=== PATIENT | female | born 1985 | race Caucasian/White ===

== ENCOUNTER 2017-02-25 20:32 | Emergency (ER) | payer MEDICAID ==
[~2017-02-25 20:32] MED LIST: ALBU0.086 INH; PERC5TAB12 PO
[2017-02-25 20:34] VITALS: BP 167/105; PULSE 93; RESP 20; TEMP 97.7; O2SAT 99
--- NOTE | 2017-02-25 20:58 | PD ---
HPI Chief Complaint: Abdominal Pain Time Seen by Provider: 20:45 Travel History International Travel<30 days: No Contact w/Intl Traveler<30days: No Traveled to known affect area: No History of Present Illness HPI 32yo F with PMH of morbid obesity presents to the ED with c/o RUQ pain that started today. States it is sharp, feels like a rubber band and constant. Pain is worst after eating. Pain radiates to right mid back. Associated with nausea. Ibuprofen and acetaminophen did not improve pain. Denies any fever, vomiting, chest pain, sob, dysuria, hematuria, vaginal bleeding or discharge, focal weakness or numbness. States she had this pain intermittently for months but did not seek medical attention. Only surgery is tonsillectomy. PFSH Past Medical History Hx Anticoagulant Therapy: No Asthma: Yes Anxiety: Yes Depression: Yes Cardiovascular Problems: No Chemotherapy: No Cerebrovascular Accident: No Diabetes: No Diminished Hearing: No Respiratory: Yes (ASTHMA) LMP: 2 DAYS AGO : 3 Para: 2 Past Surgical History Hysterectomy: No Tonsillectomy: Yes Social History Alcohol Use: No Tobacco Use: No (quiet 1 week ago smoked 2-3 cigs a day) Substance Use: No Allergies-Medications (Allergen,Severity, Reaction): Coded Allergies: prednisone (Verified Allergy, Severe, RESP DISTRESS, 02/25/17) latex (Verified Allergy, Intermediate, RASH, 02/25/17) Reported Meds & Prescriptions Reported Meds & Active Scripts Active Percocet 5-325 mg (Oxycodone/Acetaminophen) 1 Tab 1 Tab PO Q6H PRN Proventil Ud 0.083% (2.5 Mg/3 Ml) (Albuterol Sulfate) 2.5 Mg/3 Ml Inha 2.5 Mg INH Q4 Review of Systems Except as stated in HPI: all other systems reviewed are Neg Physical Exam Narrative GENERAL: 32yo F in mild distress. SKIN: Focused skin assessment warm/dry. HEAD: Atraumatic. Normocephalic. EYES: Pupils equal and round. No scleral icterus. No injection or drainage. CARDIOVASCULAR: Regular rate and rhythm. No murmur appreciated. RESPIRATORY: No accessory muscle use. Clear to auscultation. Breath sounds equal bilaterally. GASTROINTESTINAL: Abdomen soft, obese. +TTP RUQ. +Valenzuela's sign. +Mild epigastric ttp. No ttp RLQ. MUSCULOSKELETAL: No obvious deformities. No clubbing. No cyanosis. No edema. NEUROLOGICAL: Awake and alert. No obvious cranial nerve deficits. Motor grossly within normal limits. Normal speech. PSYCHIATRIC: Appropriate mood and affect; insight and judgment normal. Data Data Last Documented VS Vital Signs Date Time Temp Pulse Resp B/P (MAP) Pulse Ox O2 Delivery O2 Flow Rate FiO2 02/25/17 23:15 98.1 97 15 119/58 (78) 98 Room Air Orders Orders Us Abdomen Gallbladder (02/25/17 ) Complete Blood Count With Diff (02/25/17 20:53) Basic Metabolic Panel (Bmp) (02/25/17 20:53) Hepatic Functional Panel (02/25/17 20:53) Lipase (02/25/17 20:53) Prothrombin Time / Inr (Pt) (02/25/17 20:53) Act Partial Throm Time (Ptt) (02/25/17 20:53) Ed Urine Pregnancytest Poc (02/25/17 20:53) Urinalysis - C+S If Indicated (02/25/17 20:53) Ondansetron Inj (Zofran Inj) (02/25/17 21:00) Morphine Inj (Morphine Inj) (02/25/17 21:00) Ondansetron Odt (Zofran Odt) (02/25/17 22:00) Labs Laboratory Tests Test 02/25/17 21:10 02/25/17 21:33 Urine Color YELLOW Urine Turbidity CLEAR Urine pH 7.0 Urine Specific [place] 1.022 Urine Protein NEG mg/dL Urine Glucose (UA) NEG mg/dL Urine Ketones TRACE mg/dL Urine Occult Blood NEG Urine Nitrite NEG Urine Bilirubin NEG Urine Leukocyte Esterase TRACE Urine WBC 0-2 /hpf Urine Squamous Epithelial Cells 0-5 /hpf Urine Bacteria RARE /hpf Urine Mucus FEW /lpf Microscopic Urinalysis Comment CULT NOT INDICATED White Blood Count 8.5 TH/MM3 Red Blood Count 4.74 MIL/MM3 Hemoglobin 13.4 GM/DL Hematocrit 39.7 % Mean Corpuscular Volume 83.7 FL Mean Corpuscular Hemoglobin 28.2 PG Mean Corpuscular Hemoglobin Concent 33.7 % Red Cell Distribution Width 12.5 % Platelet Count 285 TH/MM3 Mean Platelet Volume 7.9 FL Neutrophils (%) (Auto) 57.8 % Lymphocytes (%) (Auto) 36.8 % Monocytes (%) (Auto) 3.3 % Eosinophils (%) (Auto) 1.7 % Basophils (%) (Auto) 0.4 % Neutrophils # (Auto) 5.0 TH/MM3 Lymphocytes # (Auto) 3.1 TH/MM3 Monocytes # (Auto) 0.3 TH/MM3 Eosinophils # (Auto) 0.1 TH/MM3 Basophils # (Auto) 0.0 TH/MM3 CBC Comment DIFF FINAL Differential Comment Prothrombin Time 10.2 SEC Prothromb Time International Ratio 0.9 RATIO Activated Partial Thromboplast Time 27.8 SEC Blood Urea Nitrogen 11 MG/DL Creatinine 0.72 MG/DL Random Glucose 117 MG/DL Total Protein 6.7 GM/DL Albumin 3.6 GM/DL Calcium Level 8.2 MG/DL Alkaline Phosphatase 109 U/L Aspartate Amino Transf (AST/SGOT) 19 U/L Alanine Aminotransferase (ALT/SGPT) 29 U/L Total Bilirubin 0.2 MG/DL Direct Bilirubin LESS THAN 0.1 MG/DL Sodium Level 139 MEQ/L Potassium Level 4.0 MEQ/L Chloride Level 105 MEQ/L Carbon Dioxide Level 28.3 MEQ/L Anion Gap 6 MEQ/L Estimat Glomerular Filtration Rate 93 ML/MIN Indirect Bilirubin 0.1 MG/DL Lipase 268 U/L MDM Medical Decision Making Medical Screen Exam Complete: Yes Emergency Medical Condition: Yes Differential Diagnosis Acute cholecystitis vs. biliary colic vs. pancreatitis vs. peptic ulcer disease vs. gastritis Narrative Course 32yo F with RUQ pain. negative. Labs reviewed, no leukocytosis. Lipase normal. LFTs normal. UA showed trace leukocyte. WBC 0-2. Culture not indicated. US gallbladder showed suspected hepatic steatosis. Contracted gallbladder. Gallstones are not seen. Pt refusing morphine. Said her pain improved. Zofran PO given. Tolerating PO. Return precautions given. Diagnosis Primary Impression: Abdominal pain Qualified Codes: R10.11 - Right upper quadrant pain Patient Instructions: General Instructions Departure Forms: Tests/Procedures Additional Instructions: Please follow up with your primary care physician in 3-7 days. Return to the ED if symptoms worsen. Med/Other Pt SpecificInfo: Prescription(s) given Scripts Ibuprofen (Ibuprofen) 600 Mg Tab 600 MG PO Q8HR Y for PAIN, #20 TAB 0 Refills Prov: Rocio Walton DO 02/25/17 Disposition: 01 DISCHARGE HOME Condition: Stable Rocio Walton DO Feb 25, 2017 20:58
[2017-02-25] MEDS ORDERED: MORPHINE SULFATE 4 MG/ML INJ IV PUSH ONE (21:00)
[2017-02-25] MEDS ORDERED: ONDANSETRON HCL 4 MG/2 ML VIAL IV PUSH ONE (21:00)
[2017-02-25 21:21] LABS: BLOOD, URINE NEG (NEG); GLUCOSE,URINE NEG (NEG); KETONE, URINE TRACE mg/dL (NEG); NITRITE,URINE NEG (NEG)
[2017-02-25 21:31] LABS: URINE COLOR YELLOW (YELLW/STRAW)
[2017-02-25 21:32] LABS: BACTERIA, URINE RARE /hpf; MUCUS URINE FEW /lpf (OCC); SQUAMOUS EPITHELIAL CELL URINE 0-5 /hpf (0-5); WBC, URINE 0-2 /hpf (0-5)
[2017-02-25 21:33] LABS: COMMENT (UR) CULT NOT INDICATED; CULTURE IF INDICATED CULT NOT INDICATED
[2017-02-25 21:41] LABS: BASOPHIL % 0.4 % (0.0-2.0); EOSINOPHIL # 0.1 TH/MM3 (0-0.4); EOSINOPHIL % 1.7 % (0.0-4.0); HEMATOCRIT 39.7 % (35.0-46.0); HEMO FLAGS DIFF FINAL; LYMPH % 36.8 % (9.0-44.0); LYMPHOCYTE # 3.1 TH/MM3 (1.0-4.8); MEAN CELL VOLUME 83.7 FL (80.0-100.0); MEAN CORPUSCULAR HEMOGLOBIN 28.2 PG (27.0-34.0); MEAN CORPUSCULAR HGB CONC 33.7 % (32.0-36.0); MONO % 3.3 % (0.0-8.0); NEUT % 57.8 % (16.0-70.0); PLATELET COUNT 285 TH/MM3 (150-450); RED BLOOD COUNT 4.74 MIL/MM3 (4.00-5.30); RED CELL DISTRIBUTION WIDTH 12.5 % (11.6-17.2); WHITE BLOOD COUNT 8.5 TH/MM3 (4.0-11.0)
[2017-02-25 21:47] LABS: CHLORIDE 105 MEQ/L (98-107); SODIUM (NA) 139 MEQ/L (136-145)
[2017-02-25 21:51] LABS: ANION GAP 6 MEQ/L (5-15); BICARBONATE 28.3 MEQ/L (21.0-32.0); BLOOD UREA NITROGEN 11 MG/DL (7-18)
[2017-02-25 21:52] LABS: APTT (PATIENT) 27.8 SEC (24.3-30.1); INTERNATIONAL NORMALIZED RATIO 0.9 RATIO; PROTHROMBIN TIME - PATIENT 10.2 SEC (9.8-11.6)
[2017-02-25 21:54] LABS: ALT (GPT) 29 U/L (10-53); AST (GOT) 19 U/L (15-37); GLOMERULAR FILTRATION RATE 93 ML/MIN (>89)
[2017-02-25 21:55] LABS: INDIRECT BILIRUBIN 0.1 MG/DL (0.0-0.8); TOTAL BILIRUBIN ADULT 0.2 MG/DL (0.2-1.0)
[2017-02-25 21:57] LABS: ALKALINE PHOSPHATASE 109 U/L (45-117)
--- NOTE | 2017-02-25 21:58 | RADRPT ---
EXAM DATE/TIME: 02/25/2017 00:00 [facility] COMPARISON: No previous studies available for comparison. INDICATIONS : Right upper quadrant pain. MEDICAL HISTORY : Right upper quadrant pain. Asthma. Anxiety. Depression. SURGICAL HISTORY : Tonsillectomy. ENCOUNTER: Initial ACUITY: 4-6 months PAIN SCORE: 6/10 LOCATION: Right upper quadrant MEASUREMENTS: LIVER: 14.5 cm length COMMON DUCT: 4 mm RIGHT KIDNEY: 10.1 x 4.6 x 4.0 cm FINDINGS: LIVER: The liver appears echogenic without focal lesion or ductal dilatation. COMMON DUCT: No intraluminal mass or stone visualized. GALLBLADDER: The gallbladder is contracted. Gallstones are seen. PANCREAS: The visualized portions are within normal limits. Much of the pancreas is obscured by overlying bowel gas. RIGHT KIDNEY: No evidence of hydronephrosis, stone, or mass. CONCLUSION: 1. Suspected hepatic steatosis. 2. Contracted gallbladder. Gallstones are not seen. Georges White MD on February 25, 2017 at 21:55 Board Certified Radiologist. This report was verified electronically.
[2017-02-25] MEDS ORDERED: ONDANSETRON ODT 4 MG TAB PO ONE (22:00)
[2017-02-25 23:15] VITALS: BP 119/58; PULSE 97; RESP 15; TEMP 98.1; O2SAT 98
[2017-02-25] MEDS ORDERED: IBUP-232 PO (23:56)
[2017-02-26 00:20] VITALS: BP 121/60
== END 2017-02-26 00:35 | disposition home or self-care (01) ==
LOC: PHED 20:32
DX: R10.11 Right upper quadrant pain (principal); J45.909 Unspecified asthma, uncomplicated
CPT/HCPCS: 76705; 80048; 80076; 81001; 83690; 84703; 85025; 85610; 85730